=== PATIENT | male | born 1955 | race Caucasian/White ===

== ENCOUNTER 2017-04-11 05:55 | Day surgery (SDC) | payer OTHER ==
[~2017-04-11] VITALS: Ht 185.4 cm; Wt 97.5 kg
[~2017-04-11 05:55] MED LIST: CITALOPRAM HBR40 MG PO; DILTIAZEM ER240 MG PO; LANTUS SOL100 UNIT/1 SUB-Q; LISINOPRIL-HCT1 EACH PO; METFORMIN HCL500 MG PO; METOPROLOL SUCC50 MG PO; SIMVASTATIN40 MG PO; VICTOZA 3-0.6 MG/0.1 SUB-Q
--- NOTE | 2017-04-11 08:11 | NUR ---
04/11/17 0811 Juan Lynn PT CBG 225 ON ARRIVAL TO PACU
--- NOTE | 2017-04-11 13:05 | NUR ---
PT RESTING IN BED-ALERT, ORIENTED AND SUPPORTED BY HIS MCKENZIE. BOTH FRIENDLY, ROUTINE SCOPE. HAD FEW QUESTIONS, RERQUESTED PRAYER. WILL FOLLOW
--- NOTE | 2017-04-13 13:16 | OR ---
[facility] [address] [place], [place] [address] Signed DATE OF PROCEDURE: 04/11/17 PREOPERATIVE DIAGNOSES Father with a history of colon cancer age 56. Personal history of colonic polyps in 2007. POSTOPERATIVE DIAGNOSES Minimal bilateral diverticulosis. Minimal moderate internal hemorrhoids. Long redundant colon. OPERATION PERFORMED Colonoscopy without biopsy to the distal right colon. ESTIMATED BLOOD LOSS: None. INDICATIONS Morgan is a 61-year-old gentleman, who came in 2007 for colonoscopy. We know his father had colon cancer at age 56. Morgan had an adenomatous polyp removed at 35 cm at that time. He returns now for his follow-up colonoscopy. In the office, I gave him a pamphlet on colonoscopy. We looked at the nature of that test along with the risks including, but not limited to gas bloating, crampy abdominal pain, bleeding, perforation requiring surgery, and missed diagnosis. We also discussed the need for IV conscious sedation. Morgan has to take daily Citalopram and he has a history of sleep apnea and is diabetic. Consequently, we asked that an anesthesia provider help us with increased monitoring sedation with Propofol. He had expressed understanding wished to proceed. PROCEDURE IN DETAIL Morgan was taken into our endoscopy suite and placed in the left lateral decubitus position. He was given IV sedation with Propofol per nurse hand screen printer. A digital rectal exam was performed and he does have some more prominence on the right side of the prostate rather than the left. After this, the adult colonoscope was introduced and advanced under direct visualization of camera. He had a moderately poor prep. We used additional sedation and abdominal compression. We rotated Morgan on the table. We made it up to the hepatic flexure. We could look down to what we thought was the right colon. The scope continued to buckle back in the left colon. We never could make it any further. Consequently, we never saw the cecum or the right colon. After this, the scope was slowly withdrawn. I had seen a diverticulum down in the right colon. As we withdrew the scope, he definitely has a long redundant colon. We saw a few diverticula in the left colon. We saw no evidence of any polyps. The rectum was unremarkable. Upon retroflexion of the scope, he has minimal to moderate internal hemorrhoids. After this, the gas had been suctioned out and the colonoscope removed. Morgan had tolerated the Electronically Signed By: KALEIGH BRUNER MD 04/13/17 1316 PATIENT NAME: GRACIE PATTERSON OPERATIVE REPORT DATE OF : 57 PHYSICIAN: KALEIGH BRUNER MD REPORT #: [id number] REPORT IS CONFIDENTIAL AND NOT TO BE RELEASED WITHOUT AUTHORIZATION [facility] [address] [place], [place] [address] Signed procedure quite well. RECOMMENDATIONS Morgan will follow up in my office in 7 to 14 days to review his results. We will offer him a barium enema to evaluate the right colon. In the future, he needs to double his bowel prep. In addition, he might repeat his prostate exam with his primary care provider. MD CHRIS Oswald/Dexter /[id number] cc: Sp Lopez MD Electronically Signed By: KALEIGH BRUNER MD 04/13/17 1316 PATIENT NAME: LEONARDOGRACIE OPERATIVE REPORT DATE OF : 57 PHYSICIAN: KALEIGH BRUNER MD REPORT #: [id number] REPORT IS CONFIDENTIAL AND NOT TO BE RELEASED WITHOUT AUTHORIZATION
== END 2017-04-11 08:40 | disposition home or self-care (01) ==
LOC: OPS 05:55 → DS 05:55
PROVIDERS: Colon & Rectal Surgery
PROC: 0DJD8ZZ Inspection of Lower Intestinal Tract, Via Natural or Artificial Opening Endoscopic (ICD-10-PCS; principal; 2017-04-11 06:45)
DX: Z12.11 Encounter for screening for malignant neoplasm of colon (principal); K64.8 Other hemorrhoids; K57.30 Diverticulosis of large intestine without perforation or abscess without bleeding; I10 Essential (primary) hypertension; G47.33 Obstructive sleep apnea (adult) (pediatric); E78.5 Hyperlipidemia, unspecified; E11.9 Type 2 diabetes mellitus without complications; F32.9 Major depressive disorder, single episode, unspecified; Z86.010 Personal history of colon polyps; Z80.0 Family history of malignant neoplasm of digestive organs; Z86.03 Personal history of neoplasm of uncertain behavior; Z98.890 Other specified postprocedural states; Z90.89 Acquired absence of other organs; Z79.899 Other long term (current) drug therapy
CPT/HCPCS: 00810; J2704; J7120

== ENCOUNTER 2017-05-01 15:52 | Emergency (ER) | payer OTHER ==
[~2017-05-01] VITALS: Ht 185.4 cm; Wt 97.5 kg
== END 2017-05-01 16:38 | disposition home or self-care (01) ==
LOC: ED 15:52
DX: Z00.8 Encounter for other general examination (principal)

== ENCOUNTER 2020-06-23 16:09 | Emergency (ER) | payer OTHER ==
[~2020-06-23] VITALS: Ht 185.4 cm; Wt 97.5 kg
== END 2020-06-23 21:50 | disposition short-term general hospital (02) ==
LOC: ED 16:09
DX: S06.5X9A Traumatic subdural hemorrhage with loss of consciousness of unspecified duration, initial encounter (principal); S06.0X9A Concussion with loss of consciousness of unspecified duration, initial encounter; Y04.8XXA Assault by other bodily force, initial encounter; I10 Essential (primary) hypertension; E11.9 Type 2 diabetes mellitus without complications; Z79.899 Other long term (current) drug therapy; Z79.4 Long term (current) use of insulin; Z20.828 Contact with and (suspected) exposure to other viral communicable diseases
CPT/HCPCS: 70450; 70486; 72125; 73030; 80053; 81001; 85025; 96374; 96375; 99285-25; C9803; G0480; J1170; J2405; U0003

== ENCOUNTER 2023-02-28 05:55 | Day surgery (SDC) | payer MEDICARE, OTHER ==
[2023-02-22 10:32] VITALS: BP 142/70
[~2023-02-28] VITALS: Ht 185.4 cm; Wt 92.7 kg
[~2023-02-28 05:55] MED LIST changes: +ASPIR-TRIN325 MG PO; +BASAGLAR K100 UNIT/1; +GLUCOTROL XL5 MG PO; +LANTUS100 UNITS/ SUB-Q; +LIPITOR40 MG PO; +OMEGA 3 1,0001 EACH PO; +OZEMPIC2 MG/0.75 SUB-Q; +VITAMIN D250 MCG PO
[2023-02-28 06:05] VITALS: BP 140/66
[2023-02-28] MEDS ORDERED: SV CALCIUM-MAG1 EACH PO (06:17)
[2023-02-28 08:44] VITALS: BP 128/74
--- NOTE | 2023-02-28 08:48 | NUR ---
02/28/23 0848 Verna Salomon 0815 PT ARRIVED IN PACU SLEEPY. ABD SOFT. 0825 PT AWAKE AND TALKING TO STAFF. O2 REMOVED. 0840 SITTING AT BEDSIDE. GETTING DRESSED. 0848 DC INSTRUCTIONS GIVEN. ALL QUESTIONS ANSWERED.
--- NOTE | 2023-02-28 10:31 | OR ---
[facility] [address] [place], [place] [address] Signed DATE OF OPERATION: 02/28/2023 SURGEON: Kaleigh Bruner MD PREOPERATIVE DIAGNOSES: 1. Father with colon cancer at age 56. 2. Personal history of colonic polyps in 2008 at age 52. 3. Right and left-sided diverticulosis. 4. Internal hemorrhoids. 5. Long redundant colon. POSTOPERATIVE DIAGNOSES: 1. A 4 mm polyp at 38 cm in left colon. 2. A 4 mm polyp at 30 cm in sigmoid colon. 3. A 5 mm polyp at 18 cm in sigmoid colon. 4. A 4 mm polyp at 15 cm in rectum. 5. Long redundant colon. 6. Minimal right left-sided diverticulosis. 7. Minimal internal hemorrhoids. PROCEDURE: Colonoscopy with hot biopsy. ESTIMATED BLOOD LOSS: None. INDICATIONS: Gracie is a 67-year-old insulin-dependent diabetic gentleman, asked to see me for followup colonoscopy. His father was diagnosed and of his colon cancer at age 56. Gracie came in 2007 at the age of 52. He had a 70 mm serrated adenomatous polyp around 3-5 cm. He has been on the five year plan. He did well with Versed and fentanyl. He came in 2017 at the age of 61. He had bilateral diverticulosis along with internal hemorrhoids. He required monitored anesthesia care with propofol infusion, even then his long redundant colon was quite difficult. We could not get beyond the hepatic flexure. His prep was poor. He takes some food late in the day because he said his blood sugar was low. He underwent a barium enema and that was unremarkable. Again, we asked him to follow up in 5 years. Currently, he said he has no lower GI complaints. He said he is retired and feels much better. In the office, I gave him a pamphlet on colonoscopy. We had reviewed the nature of the test. He understands there is risk including, but not limited to gas bloating, crampy abdominal pain, bleeding, perforation Electronically Signed By: KALEIGH BRUNER MD 02/28/23 1031 PATIENT NAME: GRACIE PATTERSON OPERATIVE REPORT DATE OF : 57 REPORT #: [id number] PHYSICIAN: KALEIGH BRUNER MD PCP: CHRISTEN GAMBLE REPORT IS CONFIDENTIAL AND NOT TO BE RELEASED WITHOUT AUTHORIZATION [facility] [address] [place], [place] [address] Signed requiring surgery, and missed diagnosis. We had him take a full one gallon of polyethylene glycol. On this occasion, his prep was much improved. He had liquid mucousy stool that we were able to suction out for the most part. In addition, we had monitored anesthesia care as we did previously given his difficulty with his colon and his medical issues including his diabetes that proved to be very helpful on this occasion as well. He had expressed understanding and wished to proceed. DESCRIPTION OF PROCEDURE: Gracie was taken into our endoscopy suite and placed in the left lateral decubitus position. He was maintained on IV propofol per our nurse machine lay out worker. A digital rectal exam was performed and this was unremarkable. Really not much in the way of external hemorrhoids. Good sphincter tone. Prostate is moderately indurated and swollen, consistent with his age. The adult colonoscope was then introduced and advanced under direct visualization of camera. Once again, it took us a while to get through his long redundant colon over the hepatic flexure. It took some extra propofol and abdominal compression, and finally got around hepatic flexure and down into the cecum itself. His prep was again good, although there were some areas of liquid mucousy stool. Most of that was irrigated and suctioned out. We could easily see the appendiceal orifice and ileocecal valve. The scope was then slowly withdrawn. The above-mentioned polyps were easily removed with the help of a hot biopsy forceps. Very little in the way of diverticular disease on this occasion. In the rectum, the scope was retroflexed and he does have just very minimal internal hemorrhoid tissue. After this, the gas was suctioned out. The colonoscope removed. Gracie tolerated the procedure quite well. RECOMMENDATIONS: I will see Gracie back in my office in 7 to 14 days to review his results. He will always need monitored anesthesia care. He will always need a double bowel prep. Kaleigh Bruner MD ALB/MODL /[id number] cc: Patient Chart Christen Gamble, Nurse Practitioner Electronically Signed By: KALEIGH BRUNER MD 02/28/23 1031 PATIENT NAME: GRACIE PATTERSON OPERATIVE REPORT DATE OF : 57 REPORT #: [id number] PHYSICIAN: KALEIGH BRUNER MD PCP: CHRISTEN GAMBLE REPORT IS CONFIDENTIAL AND NOT TO BE RELEASED WITHOUT AUTHORIZATION [address] [address] Signed Kaleigh Bruner MD Copies: KALEIGH BRUNER MD ~ Electronically Signed By: KALEIGH BRUNER MD 02/28/23 1031 PATIENT NAME: LEONARDOGRACIEITH OPERATIVE REPORT DATE OF : 57 REPORT #: [id number] PHYSICIAN: KALEIGH BRUNER MD PCP: CHRISTEN GAMBLE REPORT IS CONFIDENTIAL AND NOT TO BE RELEASED WITHOUT AUTHORIZATION
--- NOTE | 2023-03-02 14:39 | PATH ---
[facility] [address] [facility] [place], [place] [address] Signed SPECIMEN(S): A LEFT DESCENDING AT 38 CM SPECIMEN(S): B SIGMOID POLYP AT 30 CM SPECIMEN(S): C DISTAL SIGMOID POLYP AT 18 CM SPECIMEN(S): D RECTAL POLYP AT 15 CM SPECIMEN SOURCE: A. LEFT DESCENDING AT 38 CM B. SIGMOID POLYP AT 30 CM C. DISTAL SIGMOID POLYP AT 18 CM D. RECTAL POLYP AT 15 CM CLINICAL HISTORY: FHx of colon CA, hx of polyps, diverticulosis, internal hemorrhoids, long redundant colon. Post Op: Colon and rectal polyps, diverticulosis, internal hemorrhoids, long redundant colon. FINAL PATHOLOGIC DIAGNOSIS: A. Left descending at 38 cm: - Polypoid colonic mucosa with focal slight hyperplastic features (one fragment). B. Sigmoid polyp at 30 cm: - Hyperplastic polyp (two fragments). C. Distal sigmoid polyp at 18 cm: - Hyperplastic polyp (one fragment). D. Rectal polyp at 15 cm: - Hyperplastic polyp (two fragments). JVR:[facility] MICROSCOPIC EXAMINATION: Histologic sections of all submitted blocks are examined by light microscopy. These findings, together with the gross examination, support the pathologic diagnosis. GROSS DESCRIPTION: A. The specimen, labeled and designated "Anibal, descending colon polyp at 48 cm," is received in formalin and consists of one kessler soft tissue fragment, 0.2 cm. Entirely submitted in (A1). B. The specimen, labeled and designated "Anibal, sigmoid colon polyp at 30 cm," is received in formalin and consists of two kessler soft tissue fragments, ranging from 0.1-0.2 cm. Entirely submitted in (B1). PATIENT NAME: GRACIE PATTERSON PATHOLOGY DATE OF : 57 REPORT #: [id number] PHYSICIAN: SHAR GARCIA PCP: ELIZABETH PEARSON REPORT IS CONFIDENTIAL AND NOT TO BE RELEASED WITHOUT AUTHORIZATION [facility] [address] [place], [place] [address] Signed C. The specimen, labeled and designated "Anibal, distal sigmoid colon polyp at 18 cm," is received in formalin and consists of one kessler soft tissue fragment, 0.1 cm. Entirely submitted in (C1). D. The specimen, labeled and designated "Anibal, rectal polyp at 15 cm," is received in formalin and consists of two kessler soft tissue fragments, ranging from 0.2 cm. Entirely submitted in (D1). JS (under the direct supervision of a pathologist) The Gross Description was prepared using a voice recognition system. The report was reviewed for accuracy; however, sound-alike word errors, addition and/or deletions may occur. If there is any question about this report, please contact Client Services. PERFORMING LABORATORY: Technical component was performed by [facility], [address] [place] [id number] (CLIA# [id number]). Professional interpretation was performed by [facility], [address] [place] [id number] (CLIA#: [id number]). Diagnostician: Aaron Diaz MD Pathologist Electronically Signed 03/02/2023 Copies: ~ PATIENT NAME: GRACIE PATTERSON PATHOLOGY DATE OF : 57 REPORT #: [id number] PHYSICIAN: SHAR PATHOLOGY PCP: ELIZABETH PEARSON REPORT IS CONFIDENTIAL AND NOT TO BE RELEASED WITHOUT AUTHORIZATION
== END 2023-02-28 08:54 | disposition home or self-care (01) ==
LOC: DS 05:55 → OPS 05:55 → DS 07:30 → OPS 07:30
PROVIDERS: ATTEND Colon & Rectal Surgery
PROC: 0DBE8ZZ Excision of Large Intestine, Via Natural or Artificial Opening Endoscopic (ICD-10-PCS; principal; 2023-02-28 07:30)
DX: K63.5 Polyp of colon (principal); Z86.010 Personal history of colon polyps; Z80.0 Family history of malignant neoplasm of digestive organs; K57.30 Diverticulosis of large intestine without perforation or abscess without bleeding; K64.0 First degree hemorrhoids; E13.9 Other specified diabetes mellitus without complications; K62.1 Rectal polyp
CPT/HCPCS: 00811; J2704; J7121

== ENCOUNTER 2024-09-24 18:23 | Emergency (ER) | payer MEDICARE, OTHER ==
[~2024-09-24] VITALS: Ht 185.4 cm; Wt 93.2 kg
[~2024-09-24 18:23] MED LIST changes: +SV CALCIUM-MAG1 EACH PO
[2024-09-24] MEDS ORDERED: BUTALB-ACETAMI1 EACH PO (19:57)
[2024-09-24] MEDS ORDERED: BUTALB/ACETAMINOPHEN/CAFFEINE 1 EACH CAP PO ONE (20:00)
[2024-09-24] MEDS ORDERED: KETOROLAC TROMETHAMINE 60 MG/2 ML VIAL IM ONE (20:30)
[2024-09-24] MEDS ORDERED: MOUNJARO12.5 MG/0. SQ (20:30)
[2024-09-24] MEDS ORDERED: LISINOPRIL40 MG PO (20:30)
[2024-09-24 21:03] VITALS: BP 138/85
== END 2024-09-24 21:03 | disposition home or self-care (01) ==
LOC: ED 18:23
DX: R51.9 Headache, unspecified (principal); I10 Essential (primary) hypertension; E11.9 Type 2 diabetes mellitus without complications; Z88.8 Allergy status to other drugs, medicaments and biological substances
CPT/HCPCS: 70450; 96372; 99284-25; J1885

== ENCOUNTER 2024-12-22 17:56 | Emergency (ER) | payer MEDICARE, OTHER ==
[~2024-12-22] VITALS: Ht 185.4 cm; Wt 90.2 kg
[~2024-12-22 17:56] MED LIST changes: +BUTALB-ACETAMI1 EACH PO; +LISINOPRIL40 MG PO; +MOUNJARO12.5 MG/0. SQ
[2024-12-22 18:29] LABS: BILIRUBIN, URINE NEGATIVE (negative); BLOOD/HGB, URINE LARGE (Negative); KETONE, URINE TRACE (Negative); LEUK ESTERASE, URINE NEGATIVE (negative); NITRITE, URINE NEGATIVE (negative)
[2024-12-22 18:34] LABS: WHITE BLOOD CELLS, URINE 41-50 /HPF (0-5)
[2024-12-22 18:35] LABS: BACTERIA, URINE RARE /hpf (negative); CASTS, URINE NONE SEEN \\lpf; COLLECTION TYPE, URINE CLEAN CATCH; CRYSTALS, URINE NONE SEEN (0-1+); EPITHELIAL CELLS, URINE SQUAMOUS 1+ /lpf (0-1+); REFLEX CULTURE, URINE Yes (No)
[2024-12-22] MEDS ORDERED: ASPIRIN81 MG PO (18:41)
[2024-12-22] MEDS ORDERED: HYDROCHLOROTHIA25 MG PO (18:43)
[2024-12-22] MEDS ORDERED: LIDOCAINE 2% VISCOUS 6 ML SYR TOP ONE (20:00)
[2024-12-22 20:23] LABS: BASOPHILS 0.4 % (0.2-1.2); EOSINOPHILS 0.6 % (0.8-7.0); HEMATOCRIT 41.7 % (40.1-51.0); HEMOGLOBIN 14.4 g/dL (13.7-17.5); LYMPHOCYTES 8.3 % (21.8-53.1); MCH 29.4 PG (25.7-32.2); MCHC 34.5 g/dL (32.3-36.5); MCV 85.3 fL (79.0-92.2); MONOCYTES 11.2 % (5.3-12.2); NEUTROPHILS 79.1 % (34.0-67.9); PLATELET COUNT 192 K/uL (163-337); RBC 4.89 M/uL (4.63-6.08)
[2024-12-22 20:42] LABS: ALBUMIN 3.2 g/dL (3.4-5.0); ALBUMIN/GLOBULIN RATIO 0.86 (1.1-2.4); ANION GAP 13.7 (7-21); BILIRUBIN, TOTAL 1.2 mg/dL (0.2-1.0); BUN/CREATININE RATIO 14.15 (6.0-28.6); CALCIUM 8.9 mg/dL (8.5-10.1); CREATININE, SERUM 1.13 mg/dL (0.70-1.30); POTASSIUM 3.7 mmol/L (3.5-5.1); PROTEIN, TOTAL 6.9 g/dL (6.4-8.2)
[2024-12-22] MEDS ORDERED: MACROBID 100 M100 MG PO (21:10)
[2024-12-22] MEDS ORDERED: FLOMAX0.4 MG PO (21:10)
[2024-12-22] MEDS ORDERED: NITROFURANTOIN MONOHYD MACROCR 100 MG HOME.PACK PO ONE (21:15)
[2024-12-22] MEDS ORDERED: TAMSULOSIN HCL 0.4 MG CAP PO ONE (21:15)
[2024-12-22 21:30] VITALS: BP 143/62
== END 2024-12-22 21:30 | disposition home or self-care (01) ==
LOC: ED 17:56
PROVIDERS: Emergency Medicine; Family Medicine
DX: N39.0 Urinary tract infection, site not specified (principal); I10 Essential (primary) hypertension; E11.9 Type 2 diabetes mellitus without complications; I48.91 Unspecified atrial fibrillation; Z79.4 Long term (current) use of insulin; Z79.82 Long term (current) use of aspirin; Z79.899 Other long term (current) drug therapy; Z88.8 Allergy status to other drugs, medicaments and biological substances
CPT/HCPCS: 36415; 51701; 51798; 80053; 81001; 85025; 87088; 99283